=== PATIENT | male | born 1935 | race Caucasian/White ===

== ENCOUNTER 2019-11-30 10:52 | Inpatient (IN) | payer MEDICARE, BC ==
[~2019-11-30] VITALS: Ht 152.4 cm; Wt 60.9 kg
[2019-11-30] VITALS (227 sets, daily range): BP systolic 123–137; BP diastolic 64–100; PULSE 100–109; TEMP 97.1–98.7; O2SAT 45–100
[~2019-11-30 10:52] MED LIST: ADVAIR 250/28 DISKUS IH; ASPIRIN 81M81 MG/TA2 PO; AVODART 0.5MG0.5 MG PO; DIFLUCAN PO; LEVAQUIN 5500 MG/TAB PO; LEVOTHYROXINE PO; LOPRESSOR 225 MG/TAB PO; MEVACOR 20M20 MG/TAB PO; PHENERGAN W/CO120 ML PO; PHENERGAN12.5 MG/SU RC; PRILOSEC PO; SPIRIVA INH IH; SYNTHROID0.112 MG/T PO; ZYLOPRIM 100MG100 MG PO
[2019-11-30 12:20] LABS: ARTERIAL BLD GAS O2 SATURATION 93.3 % (92-100); ARTERIAL BLD GAS TCO2 CT 20.5; ARTERIAL BLOOD GAS BASE EXCESS -3.7 (-2-2); ARTERIAL BLOOD GAS HCO3 19.6 meq/L (22-26); ARTERIAL BLOOD GAS PCO2 30.3 mmHg (35-45); ARTERIAL BLOOD GAS PO2 65.3 mmHg (80-100); ARTERIAL BLOOD GAS pH 7.43 (7.35-7.45)
[2019-11-30 12:59] LABS: ALBUMIN 3.7 gm/dL (3.5-5.0); BILIRUBIN,TOTAL 0.9 mg/dL (0.0-1.0); CALCIUM 9.1 mg/dL (8.4-10.2); CREATININE, serum 0.91 (0.66-1.25); POTASSIUM 3.8 mmol/L (3.4-5.0); TOTAL PROTEIN 7.2 gm/dL (6.4-8.2)
[2019-11-30 13:15] LABS: HEMOGLOBIN 12.2 g/dl (13.5-18.0); MEAN CELL VOLUME 94 fl (80.0-100.0); MEAN CORPUSCULAR HEMOGLOBIN 31 pg (27.0-31.0); MEAN CORPUSCULAR HGB CONC 33 g/dl (33.0-37.0); MEAN PLATELET VOLUME 11.1 fl (7.4-10.4); PLATELET COUNT 165 K/mm3 (130-400); RED BLOOD COUNT 3.95 M/mm3 (4.20-5.60); REDCELL DISTRIBUTION WIDTH-CV 13.9 % (11.5-14.5)
[2019-11-30 13:16] LABS: TROPONIN-I 0.068 ng/mL (0.000-0.035)
[2019-11-30 13:44] LABS: BASOPHIL 1 % (0-2); LYMPHOCYTE 3 % (20.0-51.0); NEUTROPHILS 81 % (42.0-75.2); PLATELET ESTIMATE NORMAL (NORMAL)
[2019-11-30] MEDS ORDERED: SYNTHROID0.1 MG/TAB PO ×2 (13:45→13:47)
[2019-11-30] MEDS ORDERED: SYNTHROID 0.10.15 MG PO (13:46)
[2019-11-30] MEDS ORDERED: SEROQUEL 1100 MG/TAB PO (13:48)
[2019-11-30] MEDS ORDERED: SEROQUEL50 MG PO (13:49)
[2019-11-30] MEDS ORDERED: PRISTIQ 50 MG T50 MG PO (13:50)
[2019-11-30] MEDS ORDERED: ONCOVITE1 TAB (13:52)
[2019-11-30] MEDS ORDERED: PRAVACHOL 40MG40 MG PO (13:52)
[2019-11-30] MEDS ORDERED: NORVASC 5MG5 MG/TAB PO (13:53)
--- NOTE | 2019-11-30 19:05 | NUR ---
RECEIVED REPORT FROM TEZ FLORES. PT LYING IN BED WITH EXTRACTOR OPERATOR HELPER RESTRAINTS IN PLACE. PT ATTEMPTING TO GET OOB AND HAVING A HARD TIME FOLLOWING INSTRUCTIONS. PT ON AIRVO AT 10L. VSS. BEDALARM IN PLACE.
--- NOTE | 2019-11-30 19:40 | NUR ---
PT THRASHING AROUND AND HAVING A HARD TIME HOLDING STILL AND YELLING AND OCCASSIONALLY KICKING AND ATTEMPTING TO BITE AT NURSING STAFF. PT IS INCONTINENT OF URINE. NOTED RR TO BE UP TO HIGH 20s NOW AND IS HAVING A HARD TIME SETTLIGN TO BREATHE. SEE MAR. X2 RN AT BEDSIDE AT THIS TIME TO HELP TRY AND CALM PT DOWN AND GET DIFFERENT O2 TUBING ON PT BECAUSE HE PULLED OFF AIRVO AND BROKE TUBING, RT AWARE. RT PLACES PT ON 6L VIA NC. AFTER 10 MINS, NOTES POX TO INCREASE TO 100% AND MAINTAIN, O2 DECREASED TO 4L VIA NC ONCE MEDICATIONS GIVEN HELPED CALM PT. SEE MAR.
[2019-11-30 19:57] LABS: COLLECTION METHOD CLEAN CATCH
[2019-11-30 20:09] LABS: MUCOUS Present /lpf; PH 5 (5-8); SQUAMOUS EPITHELIAL None Seen /hpf; URINE APPEARANCE Hazy; URINE BACTERIA None Seen /hpf; URINE BILIRUBIN Negative (NEGATIVE); URINE BLOOD 2+ (NEGATIVE); URINE COLOR Yellow; URINE GLUCOSE Negative (NEGATIVE); URINE KETONE Negative (NEGATIVE); URINE LEUKOCYTE ESTERASE Negative (NEGATIVE); URINE NITRATE Negative (NEGATIVE); URINE PROTEIN(semi-quant) 1+ (NEGATIVE); URINE UROBILINOGEN Negative (NEGATIVE)
--- NOTE | 2019-11-30 23:13 | NUR ---
FABIAN PUGH NOTIFIED OF PT VERY AGITATED, CLIMBING OUT OF BED, KICKING AT STAFF, RR IN MID 30s CURRENTLY AND IS UNABLE TO FOLLOW INSTRUCTIONS AT ALL. NEW ORDERS RECEIEVED, SEE MAR.
[2019-12-01] VITALS (527 sets, daily range): BP systolic 96–150; BP diastolic 53–92; PULSE 74–95; TEMP 98.1–98.6; O2SAT 61–100
[2019-12-01 05:09] LABS: BASO % 0.3 % (0.0-2.0); EOS % 0.2 % (0-4.0); GRAN # 7.2 (1.4-6.5); GRAN % 73.1 % (42.2-75.2); LYMPH # 1.2 (1.2-3.4); MEAN CELL VOLUME 94 fl (80.0-100.0); MEAN CORPUSCULAR HEMOGLOBIN 32 pg (27.0-31.0); MEAN CORPUSCULAR HGB CONC 34 g/dl (33.0-37.0); MEAN PLATELET VOLUME 11.2 fl (7.4-10.4); MONO # 1.4 (0.1-0.6); MONO % 14.1 % (1.7-9.3); PLATELET COUNT 132 K/mm3 (130-400); RED BLOOD COUNT 3.49 M/mm3 (4.20-5.60); REDCELL DISTRIBUTION WIDTH-CV 13.9 % (11.5-14.5)
[2019-12-01 05:10] LABS: ARTERIAL BLD GAS O2 SATURATION 95.7 % (92-100); ARTERIAL BLD GAS TCO2 CT 22.8; ARTERIAL BLOOD GAS BASE EXCESS -3.4 (-2-2); ARTERIAL BLOOD GAS HCO3 21.6 meq/L (22-26); ARTERIAL BLOOD GAS PCO2 39.1 mmHg (35-45); ARTERIAL BLOOD GAS PO2 84.2 mmHg (80-100); ARTERIAL BLOOD GAS pH 7.36 (7.35-7.45)
[2019-12-01 05:11] LABS: HEMATOCRIT 32.7 % (42.0-52.0)
[2019-12-01 05:18] LABS: CALCIUM 7.9 mg/dL (8.4-10.2); CREATININE, serum 0.8 (0.66-1.25); POTASSIUM 4.1 mmol/L (3.4-5.0)
--- NOTE | 2019-12-01 06:30 | NUR ---
ANAHIPLE ATTEMPTS MADE THROUGHOUT SHIFT TO TAKE OFF FARMWORKER BROODER FARM RESTRAINTS AND ALLOW PT TO MOVE WRISTS AND TO SEE IF THE RESTRAINTS CAN COME OFF. PT UNABLE TO FOLLOW INSTRUCTIONS, CONTINUES TO CLIMB OUT OF BED, PULL OFF SANDWICH WRAPPER AND OXYGEN. UNSUCCESSFUL AT THIS TIME. WILL CONTINUE TO EVALUATE PT FOR RESTRAINT DISCONTINUING POSSIBILITIES.
--- NOTE | 2019-12-01 07:15 | NUR ---
Report received from Patricia REAGAN and care resumed.
--- NOTE | 2019-12-01 07:55 | NUR ---
Dr Howell in to see pt at this time.
--- NOTE | 2019-12-01 10:27 | NUR ---
Application Services Manager contacted patient's daughter, Olga (ph#[phone]) to discuss discharge planning as patient has been confused. Olga advised that patient lives at [facility] in the memory care unit and has been there since fall. Patient sees Dr. Everett Roque for primary care and has his medications administered to him by staff at [facility]. Patient is mostly independent with ADLS however does need occasional cues. Patient also needs some assistance with buttons. Patient does not use any DME. Olga advised that plan is for patient to discharge to [facility]. NUHA contacted Antonina at [facility] and faxed updates. NUHA requested copy of DP- documents, which list patient's daughter Olga and son Salty (ph#[phone]). Antonina to fax copy. NUHA will continue to follow.
--- NOTE | 2019-12-01 15:38 | NUR ---
Dr Garcia was called regarding pt pulling out iv's again. Dr Garcia on unit to see pt. PICC order was placed. Rosa with [facility] called pts daughter for consent and she was stating she does not want aggressive cares and would just like to pt to go back to familiar environment at assisted. Dr Garcia spoke in detail about care from here forward and daughter stated if pt doesn't get better on his own then she was ok with him passing vs poking him for lines here. Marisa with case management was notified.
[2019-12-01] MEDS ORDERED: LEVAQUIN 750MG750 M1 PO (16:07)
--- NOTE | 2019-12-01 16:13 | NUR ---
Interactive Account Manager collaborated with Hospitalist and RNBrenna who advised patient's daughter, Olga would like patient discharged back to [facility] and does not want any further hospitalizations for patient. SW collaborated with [facility] S[facility] who advised they can accept today. Per Hospitalist, patient is being switched to oral antibiotics. TEZ Ceja advised patient is not currently requiring oxygen. NUHA provided these updates to Antonina who advised they can supervisor picking crew patient in about an hour. NUHA faxed discharge orders to Antonina. NUHA provided update to Olga who is in agreement with discharge plan.
--- NOTE | 2019-12-01 17:40 | NUR ---
[facility] staff here for pt. Pt was transfered to wheelchair with max assist and rolled out to car where he was again max assist to get into car. Pt dc'd at this time.
--- NOTE | 2019-12-01 17:40 | NUR ---
Restraints dc'd at this time. No injury while in restraints.
== END 2019-12-01 17:40 | DRG 871 ==
LOC: COL.ER 10:52 → ICU 13:28
PROVIDERS: Emergency Medicine; Nurse Practitioner Primary Care; Physician Assistant; ADMIT Hospitalist
DX: A41.9 Sepsis, unspecified organism (principal); J18.9 Pneumonia, unspecified organism; J96.01 Acute respiratory failure with hypoxia; I21.A1 Myocardial infarction type 2; F05 Delirium due to known physiological condition; J44.0 Chronic obstructive pulmonary disease with (acute) lower respiratory infection; C34.90 Malignant neoplasm of unspecified part of unspecified bronchus or lung; G93.40 Encephalopathy, unspecified; R65.20 Severe sepsis without septic shock; F03.90 Unspecified dementia, unspecified severity, without behavioral disturbance, psychotic disturbance, mood disturbance, and anxiety; E78.5 Hyperlipidemia, unspecified; I25.10 Atherosclerotic heart disease of native coronary artery without angina pectoris; K21.9 Gastro-esophageal reflux disease without esophagitis; I10 Essential (primary) hypertension; F32.9 Major depressive disorder, single episode, unspecified; M10.9 Gout, unspecified; E03.9 Hypothyroidism, unspecified; Z20.828 Contact with and (suspected) exposure to other viral communicable diseases; Z95.5 Presence of coronary angioplasty implant and graft; Z95.3 Presence of xenogenic heart valve; Z88.2 Allergy status to sulfonamides; Z87.891 Personal history of nicotine dependence
CPT/HCPCS: 99223-AI; 99239; J0456; J1630; J1650; J2060; J2543; J7030; J7050